=== PATIENT | male | born 1990 | race African-American/Black ===

== ENCOUNTER 2016-07-30 13:13 | Emergency (ER) | payer SELFPAY ==
[~2016-07-30] VITALS: Ht 180.3 cm; Wt 90.0 kg
[2016-07-30 13:15] VITALS: BP 131/72; PULSE 66; RESP 14; TEMP 98; O2SAT 98
--- NOTE | 2016-07-30 16:05 | PD ---
HPI Chief Complaint: Cold / Flu Symptoms Time Seen by Provider: 16:04 Travel History International Travel<30 days: No Contact w/Intl Traveler<30days: No Traveled to known affect area: No History of Present Illness HPI 26-year-old male presents to the emergency Department with complaint of cough, nasal congestion 2 weeks. Denies fever, chills, nausea, vomiting. Reports throat irritation with coughing. Denies chest pain, shortness of breath. Denies wheezing. Denies history of asthma or tobacco use. Girlfriend is sick with similar symptoms and was treated with antibiotics. Has not tried any over- the-counter medications or treatments to alleviate symptoms. Symptoms are worse at night when he lays down flat. Cough is worse at night. No sputum production. Dry cough. No known allergies. Denies Past medical history. No other modifying factors or associated signs and symptoms. PFSH Past Medical History Medical History: Denies Significant Hx Social History Tobacco Use: No Allergies-Medications (Allergen,Severity, Reaction): Coded Allergies: No Known Allergies (Unverified , 07/30/16) Reported Meds & Prescriptions Reported Meds & Active Scripts Active Azithromycin 500 Mg Tab 500 Mg PO DAILY Deltasone (Prednisone) 20 Mg Tab 40 Mg PO DAILY 4 Days start 07/31/2016 Proair Hfa 8.5 GM Inh (Albuterol Sulfate) 90 Mcg/Act Aer 2 Puff INH Q4-6H PRN 108 mcg/actuation Nasonex Nasal [place] (Mometasone Furoate) 50 Mcg/Act Naspr 2 [place] EACH NARE DAILY PRN Review of Systems Except as stated in HPI: all other systems reviewed are Neg Physical Exam Narrative GENERAL: Well-nourished, well-developed male patient, in no acute distress; afebrile, nontoxic-appearing SKIN: Warm and dry. No rash. HEAD: Atraumatic. Normocephalic. EYES: Pupils equal and round at 3 mm with brisk reaction. No scleral icterus. No injection or drainage. PERRLA. ENT: Mucosa pink and moist. No erythema or exudates. No uvular edema. No uvular , palatal, or tonsillar deviation. Airway patent. EARS: Bilateral pinnae and external canals appear within normal limits. Bilateral tympanic membranes without erythema, dullness or perforation. NECK: Trachea midline. No lymphadenopathy. CARDIOVASCULAR: Regular rate and rhythm. No murmur appreciated. RESPIRATORY: No accessory muscle use. Clear and decreased throughout to auscultation; no wheezing on auscultation. Breath sounds equal bilaterally. No audible wheezing. GASTROINTESTINAL: Abdomen soft, non-tender, nondistended. Hepatic and splenic margins not palpable. Bowel sounds are active 4 quadrants. MUSCULOSKELETAL: No obvious deformities. No clubbing. No cyanosis. No edema. NEUROLOGICAL: Awake and alert. Oriented 3. No obvious cranial nerve deficits. Motor grossly within normal limits. Normal speech. Moves all extremities. 5/5 strength to all extremities. PSYCHIATRIC: Appropriate mood and affect; insight and judgment normal. Data Data Last Documented VS Vital Signs Date Time Temp Pulse Resp B/P Pulse Ox O2 Delivery O2 Flow Rate FiO2 07/30/16 13:15 98.0 66 14 131/72 98 Orders Prednisone (Deltasone) (07/30/16 16:45) Albuterol-Ipratropium Neb (Duoneb Neb) (07/30/16 16:45) MDM Medical Decision Making Medical Screen Exam Complete: Yes Emergency Medical Condition: Yes Medical Record Reviewed: Yes Differential Diagnosis Viral illness, bronchitis, upper respiratory infection, sinusitis Narrative Course 26-year-old male physical examination consistent with acute bronchitis. Afebrile. Denies fever, chills, nausea, vomiting. In no acute distress and lung sounds are clear and decreased throughout. Oxygen saturation is 90% on room air. DuoNeb 1 and Deltasone administered in the ER. Deltasone, pro-air inhaler, Nasonex, azithromycin prescribed for home. Prescribed antibiotics for length of illness. Patient is medically cleared and stable for discharge. Discussed reasons to return to the emergency department. Instructed patient to follow up with primary care provider. Patient agrees with treatment plan. The patients vital signs are stable and the patient is stable for outpatient follow- up and treatment. Patient discharged home, stable and in no acute distress. Diagnosis Primary Impression: Bronchitis Referrals: Primary Care Physician Patient Instructions: Acute Bronchitis (ED), General Instructions Additional Instructions: Antibiotic as prescribed and complete full course Use albuterol inhaler 2-4 puffs every 4 hours at home as needed for shortness of breath and wheezing Take oral steroids as prescribed and complete full course avoid triggers such as second hand smoke, dust, known allergens With head of bed elevated Sleep with ceiling fan turned off Increase fluid intake to prevent dehydration Tylenol or ibuprofen as directed and as needed for pain/fever Follow-up with primary care provider Return to emergency department immediately with worsening of symptoms Med/Other Pt SpecificInfo: Prescription(s) given Scripts Azithromycin 500 Mg [id number] Mg PO DAILY #5 TAB Ref 0 Prov:Karla Sood 07/30/16 Prednisone (Deltasone)20 Mg Tab40 Mg PO DAILY 4 Days Ref 0 start 07/31/2016 Prov:Karla Sood 07/30/16 Albuterol 8.5 GM Inh (Proair Hfa 8.5 GM Inh)90 Mcg/Act Aer2 Puff INH Q4-6H PRN ( SOB/WHEEZING) #1 INHALER Ref 0 108 mcg/actuation Prov:Karla Sood 07/30/16 Mometasone Nasal [place] (Nasonex Nasal [place])50 Mcg/Act Naspr2 [place] EACH NARE DAILY PRN (NASAL CONGESTION) #1 BOTTLE Ref 0 Prov:Karla Sood 07/30/16 Disposition: 01 DISCHARGE HOME Condition: Stable Karla Sood Jul 30, 2016 16:05 Karla Sood Jul 30, 2016 16:05
[2016-07-30] MEDS ORDERED: ALBUAER3 INH (16:34)
[2016-07-30] MEDS ORDERED: MOME17I EACH NARE (16:34)
[2016-07-30] MEDS ORDERED: PRED-503 PO (16:34)
[2016-07-30] MEDS ORDERED: AZIT500T2 PO (16:34)
[2016-07-30] MEDS ORDERED: RESP: ALBUTEROL 2.5 MG/IPRATROPIUM 0.5 MG NEB (SCH) INH ONE (16:45)
[2016-07-30] MEDS ORDERED: predniSONE 20 MG TAB PO ONE (16:45)
== END 2016-07-30 17:07 | disposition home or self-care (01) ==
LOC: NEPB 13:13
DX: J40 Bronchitis, not specified as acute or chronic (principal)
CPT/HCPCS: 94664; 99283; J7512

== ENCOUNTER 2016-08-31 12:42 | Inpatient (IN) | payer OTHER ==
[~2016-08-31] VITALS: Ht 180.3 cm; Wt 87.0 kg
[2016-08-31] VITALS (7 sets, daily range): BP systolic 127–143; BP diastolic 82–92; PULSE 63–122; RESP 18; O2SAT 95–99
[~2016-08-31 12:42] MED LIST: ALBUAER3 INH; AZIT500T2 PO; LACTATED RINGER'S 1000 ML INJ 3,000 ML IV ONE; MOME17I EACH NARE; NEOSTIGMINE 3 MG/3 ML SYR IV ONE; ONDANSETRON HCL 4 MG/2 ML VIAL IV PUSH ONE; PHENYLEPH/NS 1000 MCG/10 ML SYR IV ONE; PRED-503 PO; PROPOFOL 200 MG/20 ML AMP IV ONE
[2016-08-31] MEDS ORDERED: ceFAZolin 2 GM PREMIX 50 ML ONE (12:47)
[2016-08-31] MEDS ORDERED: DIPHTH/TETANUS/ACEL PERTUSSIS (BOOSTER) 0.5 ML VIAL/PFS IM ONE ×2 (12:50→13:44)
[2016-08-31] MEDS ORDERED: HYDROmorphone HCL PF 1 MG/ML VIAL ONE (12:59)
[2016-08-31] MEDS ORDERED: ONDANSETRON HCL 4 MG/2 ML VIAL ONE (12:59)
[2016-08-31] MEDS ORDERED: GENTAMICIN 80 MG PREMIX 100 ML ONE (13:05)
[2016-08-31 13:21] LABS: I-STAT POTASSIUM 3.5 MMOL/L (3.5-4.9)
[2016-08-31] MEDS ORDERED: IOHEXOL 350 MG/ML 10 ML VIAL (for RAD DIAG) IV ONE (13:21)
[2016-08-31 13:23] LABS: AUTOMATED NEUTROPHIL # 5.4 TH/MM3 (1.8-7.7); BASOPHIL % 0.4 % (0.0-2.0); EOSINOPHIL # 0.1 TH/MM3 (0-0.4); EOSINOPHIL % 1.5 % (0.0-4.0); HEMATOCRIT 45.5 % (39.0-51.0); HEMO FLAGS DIFF FINAL; LYMPH % 34.4 % (9.0-44.0); LYMPHOCYTE # 3.3 TH/MM3 (1.0-4.8); MEAN CORPUSCULAR HEMOGLOBIN 30.9 PG (27.0-34.0); MEAN CORPUSCULAR HGB CONC 34.7 % (32.0-36.0); MONO % 7.3 % (0.0-8.0); NEUT % 56.4 % (16.0-70.0); PLATELET COUNT 311 TH/MM3 (150-450); RED BLOOD COUNT 5.12 MIL/MM3 (4.50-5.90); RED CELL DISTRIBUTION WIDTH 14.2 % (11.6-17.2); WHITE BLOOD COUNT 9.6 TH/MM3 (4.0-11.0)
[2016-08-31 13:35] LABS: APTT (PATIENT) 21.8 SEC (24.3-30.1); PROTHROMBIN TIME - PATIENT 11.3 SEC (9.8-11.6)
[2016-08-31] MEDS ORDERED: ceFAZolin 2 GM PREMIX 50 ML IV STA (13:40)
[2016-08-31] MEDS ORDERED: LACTATED RINGER'S 1000 ML INJ 1,000 ML IV SCH (13:53)
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
[2016-08-31] MEDS ORDERED: CHLORHEXIDINE GLUCONATE 2 % 1 PACK (2 CLOTHS) TOP PRN (14:00)
[2016-08-31] MEDS ORDERED: MISCELLANEOUS NURSING INFORMATION XX SCH (14:00)
[2016-08-31] MEDS ORDERED: SODIUM CHLORIDE 0.9% FLUSH 5 ML FLUSH IVF PRN (14:00)
[2016-08-31] MEDS ORDERED: HYDROmorphone HCL PF 1 MG/ML VIAL IV ONE (14:00)
[2016-08-31] MEDS ORDERED: ONDANSETRON HCL 4 MG/2 ML VIAL IV PUSH ONE (14:00)
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
[2016-08-31] MEDS ORDERED: MAGNESIUM HYDROXIDE SUSP 30 ML CUP PO PRN ×2 (15:00→22:45)
[2016-08-31] MEDS: HYDROmorphone HCL PF 1 MG/ML VIAL IVP PRN ×2 (15:44→19:13)
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
[2016-08-31] MEDS ORDERED: GENTAMICIN SULFATE 80 MG/2 ML VIAL ONE ×2 (17:16→21:14)
[2016-08-31] MEDS ORDERED: GENTAMICIN INJ 80 MG in SODIUM CHLORIDE 0.9% INJ 100 ML IV SCH (17:45)
[2016-08-31] MEDS ORDERED: ceFAZolin 2 GM PREMIX 50 ML IV SCH (17:45)
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
[2016-08-31] MEDS ORDERED: ONDANSETRON HCL 4 MG/2 ML VIAL IV PRN (20:00)
[2016-08-31] MEDS ORDERED: DOCUSATE SODIUM 100 MG CAP PO SCH (21:00)
[2016-08-31] MEDS ORDERED: GENTAMICIN 80 MG PREMIX 100 ML IV SCH (21:00)
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
[2016-08-31] MEDS ORDERED: ACETAMINOPHEN 325 MG TAB PO PRN (22:45)
[2016-08-31] MEDS ORDERED: diphenhydrAMINE HCL 25 MG CAP PO PRN (22:45)
[2016-08-31] MEDS ORDERED: ZOLPIDEM TARTRATE 5 MG TAB PO PRN (22:45)
[2016-08-31] MEDS ORDERED: oxyCODONE/ACETAMINOPHEN 5 MG/325 MG TAB PO PRN (22:45)
[2016-08-31] MEDS ORDERED: Post-op Orders (for Pharmacy) MISC XX ONE (22:45)
[2016-08-31] MEDS ORDERED: ONDANSETRON HCL 4 MG/2 ML VIAL IVP PRN (22:45)
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
[2016-08-31] MEDS ORDERED: MORPHINE SULFATE 4 MG/ML INJ IV PUSH PRN (23:00)
[2016-08-31] MEDS ORDERED: DO NOT ADM ANY ANTICOAGULANT DRUGS XX PRN (23:05)
[2016-08-31] MEDS ORDERED: fentaNYL CITRATE 250 MCG/5 ML AMP ONE (23:10)
[2016-08-31] MEDS ORDERED: *morphine SULFATE 8 MG/ML PERIprocedure ONLY ONE (23:11)
[2016-08-31] MEDS ORDERED: MEPERIDINE HCL 25 MG/ML VIAL ONE (23:11)
[2016-08-31] MEDS ORDERED: MEPERIDINE HCL 25 MG/ML VIAL IV ONE (23:12)
[2016-08-31] MEDS ORDERED: MORPHINE SULFATE 8 MG/ML INJ IV PUSH ONE (23:20)
[2016-08-31] MEDS ORDERED: LABETALOL HCL 100 MG/20 ML VIAL ONE (23:22)
[2016-08-31] MEDS ORDERED: PROMETHAZINE INJ 25 MG/ML VIAL ONE (23:23)
[2016-08-31] MEDS ORDERED: LABETALOL HCL 100 MG/20 ML VIAL IV PUSH ONE (23:25)
[2016-09-01] VITALS (9 sets, daily range): BP systolic 117–181; BP diastolic 71–92; PULSE 109–125; RESP 17–19; TEMP 96.9–99.4; O2SAT 94–100
[2016-09-01] MEDS ORDERED: *morphine SULFATE 8 MG/ML PERIprocedure ONLY ONE ×2 (00:03→01:25)
[2016-09-01] MEDS ORDERED: MORPHINE SULFATE 8 MG/ML INJ IV PUSH ONE ×2 (00:10→01:23)
[2016-09-01] MEDS ORDERED: ceFAZolin 2 GM PREMIX 50 ML IV SCH (02:00)
[2016-09-01] MEDS: CHLORHEXIDINE GLUCONATE 2 % 1 PACK (2 CLOTHS) TOP SCH (02:20)
[2016-09-01] MEDS: DEXT 5%-NACL 0.45% 1000 ML INJ 1,000 ML IV SCH ×3 (02:21→19:00)
[2016-09-01] MEDS: HYDROmorphone HCL PF 1 MG/ML VIAL IVP PRN ×7 (03:21→23:36)
[2016-09-01 04:52] LABS: AUTOMATED NEUTROPHIL # 10.1 TH/MM3 (1.8-7.7); BASOPHIL % 0.2 % (0.0-2.0); HEMATOCRIT 31.7 % (39.0-51.0); HEMO FLAGS DIFF FINAL; LYMPHOCYTE # 1.6 TH/MM3 (1.0-4.8); MEAN CELL VOLUME 89.8 FL (80.0-100.0); MEAN CORPUSCULAR HEMOGLOBIN 30.7 PG (27.0-34.0); MEAN CORPUSCULAR HGB CONC 34.2 % (32.0-36.0); MONO % 11.2 % (0.0-8.0); NEUT % 76.6 % (16.0-70.0); PLATELET COUNT 264 TH/MM3 (150-450); RED BLOOD COUNT 3.53 MIL/MM3 (4.50-5.90); RED CELL DISTRIBUTION WIDTH 13.9 % (11.6-17.2); WHITE BLOOD COUNT 13.2 TH/MM3 (4.0-11.0)
[2016-09-01] MEDS ORDERED: GENTAMICIN 80 MG PREMIX 100 ML IV SCH (05:00)
[2016-09-01 05:04] LABS: ALT (GPT) 33 U/L (12-78); ANION GAP 12 MEQ/L (5-15); AST (GOT) 72 U/L (15-37); BICARBONATE 24.1 MEQ/L (21.0-32.0); BLOOD UREA NITROGEN 8 MG/DL (7-18); CHLORIDE 102 MEQ/L (98-107); GLOMERULAR FILTRATION RATE 95 ML/MIN (>89); POTASSIUM 4.2 MEQ/L (3.5-5.1); SODIUM (NA) 138 MEQ/L (136-145)
[2016-09-01 05:06] LABS: ALKALINE PHOSPHATASE 61 U/L (45-117); TOTAL BILIRUBIN ADULT 0.5 MG/DL (0.2-1.0)
[2016-09-01] MEDS: oxyCODONE/ACETAMINOPHEN 5 MG/325 MG TAB PO PRN ×4 (06:02→20:35)
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
[2016-09-01] MEDS: MULTIVITAMINS/MINERALS THERAPEUTIC TAB PO SCH (08:34)
[2016-09-01] MEDS: SODIUM CHLORIDE 0.9% FLUSH 5 ML FLUSH IVF SCH ×2 (08:34→19:29)
[2016-09-01] MEDS: DOCUSATE SODIUM 50 MG/SENNA 8.6 MG TAB PO SCH ×2 (08:34→19:30)
[2016-09-01] MEDS: SODIUM CHLORIDE 0.9% FLUSH 5 ML FLUSH IVF PRN ×2 (09:52→10:25)
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
[2016-09-01] MEDS: MAGNESIUM HYDROXIDE SUSP 30 ML CUP PO SCH (19:29)
[2016-09-01] MEDS: FAMOTIDINE 20 MG TAB PO SCH (19:30)
[2016-09-01] MEDS ORDERED: ENOXAPARIN SODIUM 40 MG/0.4 ML SYRINGE SQ SCH (22:00)
[2016-09-01] MEDS: diphenhydrAMINE HCL 50 MG/ML VIAL IV PRN (23:36)
[2016-09-02] VITALS: BP 140/77; PULSE 125; RESP 18; TEMP 98.6; O2SAT 96
[2016-09-02] MEDS: oxyCODONE/ACETAMINOPHEN 5 MG/325 MG TAB PO PRN ×2 (00:41→04:32)
[2016-09-02] MEDS: HYDROmorphone HCL PF 1 MG/ML VIAL IVP PRN (03:29)
[2016-09-02] MEDS: CHLORHEXIDINE GLUCONATE 2 % 1 PACK (2 CLOTHS) TOP SCH (04:00)
[2016-09-02] MEDS: DEXT 5%-NACL 0.45% 1000 ML INJ 1,000 ML IV SCH (05:00)
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
[2016-09-02 07:16] LABS: HEMATOCRIT 26.4 % (39.0-51.0); MEAN CELL VOLUME 88.8 FL (80.0-100.0); MEAN CORPUSCULAR HEMOGLOBIN 30.5 PG (27.0-34.0); MEAN CORPUSCULAR HGB CONC 34.4 % (32.0-36.0); PLATELET COUNT 203 TH/MM3 (150-450); RED BLOOD COUNT 2.98 MIL/MM3 (4.50-5.90); RED CELL DISTRIBUTION WIDTH 13.7 % (11.6-17.2); REVIEW FLAG FINAL; WHITE BLOOD COUNT 13.7 TH/MM3 (4.0-11.0)
[2016-09-02] MEDS: MULTIVITAMINS/MINERALS THERAPEUTIC TAB PO SCH (07:25)
[2016-09-02] MEDS: DOCUSATE SODIUM 50 MG/SENNA 8.6 MG TAB PO SCH ×2 (07:25→20:03)
[2016-09-02] MEDS: SODIUM CHLORIDE 0.9% FLUSH 5 ML FLUSH IVF SCH ×2 (07:25→20:03)
[2016-09-02 07:31] LABS: BICARBONATE 28.5 MEQ/L (21.0-32.0); MAGNESIUM 2.1 MG/DL (1.5-2.5); POTASSIUM 3.9 MEQ/L (3.5-5.1)
[2016-09-02] MEDS ORDERED: MIDAZOLAM HCL 2 MG/2 ML VIAL ONE (07:39)
[2016-09-02] MEDS ORDERED: ACETAMINOPHEN 1000 MG/100 ML VIAL IV ONE (07:39)
[2016-09-02] MEDS ORDERED: HYDROmorphone HCL PF 2 MG/ML VIAL ONE (07:39)
[2016-09-02] MEDS ORDERED: fentaNYL CITRATE 250 MCG/5 ML AMP ONE (07:39)
[2016-09-02] MEDS ORDERED: FAMOTIDINE 20 MG/2 ML VIAL ONE (07:40)
[2016-09-02] MEDS ORDERED: VANCOMYCIN HCL 1000 MG VIAL ONE ×2 (07:55→07:56)
[2016-09-02] MEDS ORDERED: GENTAMICIN SULFATE 80 MG/2 ML VIAL ONE (07:56)
[2016-09-02] MEDS ORDERED: SODIUM CHLOR 0.9% 250 ML INJ 250 ML ONE (07:56)
[2016-09-02 08:00] VITALS: BP 139/79; PULSE 124; RESP 16; TEMP 98.5; O2SAT 97
[2016-09-02] MEDS ORDERED: ceFAZolin 2 GM PREMIX 50 ML ONE (08:37)
[2016-09-02] MEDS ORDERED: TOBRAMYCIN SULFATE 1200 MG VIAL OTHER ONE (08:54)
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
[2016-09-02] MEDS ORDERED: Post-op Orders (for Pharmacy) MISC XX ONE (10:15)
[2016-09-02] MEDS ORDERED: SODIUM CHLORIDE 0.9% FLUSH 5 ML FLUSH IVF PRN (10:15)
[2016-09-02] MEDS ORDERED: ACETAMINOPHEN/HYDROcodone 325 MG/10 MG TAB PO PRN ×2 (10:15)
[2016-09-02] MEDS ORDERED: NALOXONE HCL 0.4 MG/ML AMP IV PRN (10:15)
[2016-09-02] MEDS ORDERED: MISCELLANEOUS NURSING INFORMATION XX PRN (10:15)
[2016-09-02] MEDS ORDERED: *morphine SULFATE 8 MG/ML PERIprocedure ONLY ONE (10:30)
[2016-09-02] MEDS ORDERED: LACTATED RINGER'S 1000 ML INJ 2,000 ML IV ONE (10:32)
[2016-09-02] MEDS ORDERED: PROPOFOL 200 MG/20 ML AMP IV ONE (10:32)
[2016-09-02] MEDS ORDERED: ONDANSETRON HCL 4 MG/2 ML VIAL IV PUSH ONE (10:32)
[2016-09-02] MEDS ORDERED: DO NOT ADM ANY ANTICOAGULANT DRUGS XX PRN (11:00)
[2016-09-02] MEDS: LACTATED RINGER'S 1000 ML INJ 1,000 ML IV SCH (11:05)
[2016-09-02] MEDS: MORPHINE SULFATE 30 MG/30 ML PCA IV SCH ×2 (11:18→22:09)
[2016-09-02] MEDS ORDERED: WHEEMIS3 (13:08)
[2016-09-02] MEDS ORDERED: WALKER WHEELS/F1 MIS (13:08)
[2016-09-02] MEDS: MORPHINE SULFATE 4 MG/ML INJ IV PUSH PRN ×3 (13:29→22:58)
[2016-09-02] MEDS: SODIUM CHLORIDE 0.9% FLUSH 5 ML FLUSH IVF PRN ×2 (13:29→17:09)
[2016-09-02] MEDS: PCA - TOTAL MG MORPHINE DELIVERED PER SHIFT SCH ×2 (14:00→22:00)
[2016-09-02] MEDS: ceFAZolin 2 GM PREMIX 50 ML IV SCH (15:49)
[2016-09-02 16:00] VITALS: BP 137/81; PULSE 123; RESP 12; TEMP 97.7; O2SAT 100
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
[2016-09-02 20:00] VITALS: BP 148/74; PULSE 128; RESP 18; TEMP 99.2; O2SAT 96
[2016-09-02] MEDS: FAMOTIDINE 20 MG TAB PO SCH (20:03)
[2016-09-02] MEDS: MAGNESIUM HYDROXIDE SUSP 30 ML CUP PO SCH (20:03)
[2016-09-02] MEDS: VANCOMYCIN INJ 1,000 MG in SODIUM CHLOR 0.9% 250 ML INJ 250 ML IV SCH (20:03)
[2016-09-02] MEDS ORDERED: SODIUM CHLORIDE 0.9% FLUSH 5 ML FLUSH IVF SCH (21:00)
[2016-09-02] MEDS: diphenhydrAMINE HCL 50 MG/ML VIAL IV PRN (21:16)
[2016-09-02 23:56] VITALS: BP 109/61; PULSE 120; RESP 19; TEMP 99; O2SAT 96
[2016-09-03] VITALS (12 sets, daily range): BP systolic 114–140; BP diastolic 56–75; PULSE 105–124; RESP 18–20; TEMP 97–99.8; O2SAT 95–98
[2016-09-03] MEDS: ceFAZolin 2 GM PREMIX 50 ML IV SCH ×3 (00:04→15:57)
[2016-09-03] MEDS: LACTATED RINGER'S 1000 ML INJ 1,000 ML IV SCH ×2 (00:05→09:23)
[2016-09-03] MEDS: MORPHINE SULFATE 4 MG/ML INJ IV PUSH PRN ×4 (01:46→20:21)
[2016-09-03] MEDS: diphenhydrAMINE HCL 50 MG/ML VIAL IV PRN ×2 (03:22→18:58)
[2016-09-03] MEDS: CHLORHEXIDINE GLUCONATE 2 % 1 PACK (2 CLOTHS) TOP SCH ×2 (04:00→23:59)
[2016-09-03 05:10] LABS: REVIEW FLAG FINAL
[2016-09-03 05:12] LABS: HEMATOCRIT 20.6 % (39.0-51.0)
[2016-09-03] MEDS: MORPHINE SULFATE 30 MG/30 ML PCA IV SCH (05:16)
[2016-09-03] MEDS: PCA - TOTAL MG MORPHINE DELIVERED PER SHIFT SCH (06:00)
[2016-09-03] MEDS ORDERED: HYDR-3366 PO (07:00)
[2016-09-03] MEDS ORDERED: XARE10TA PO (07:00)
[2016-09-03] MEDS ORDERED: WALKER WHEELS/F1 MIS (07:00)
--- NOTE | 2016-09-03 07:00 | HHI.FF ---
Face to Face Verification Diagnosis: (1) Open left femoral fracture Physical Therapy Gait training Left LE Weight Bearing: Non WB Nursing Dressing Changes: Daily dressing change, Tadeo wrap, 4x4s, Xeroform I have seen patient Toby Munoz on 09/03/16. My clinical findings support the need for the requested home health care services because: Ltd mobility - disease progression I certify that my clinical findings support that this patient is homebound because: Post-op weakness Marcello Puente Sep 03, 2016 07:00
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
[2016-09-03] MEDS: SODIUM CHLORIDE 0.9% FLUSH 5 ML FLUSH IVF SCH ×2 (08:07→20:20)
[2016-09-03] MEDS: DOCUSATE SODIUM 50 MG/SENNA 8.6 MG TAB PO SCH ×2 (08:08→20:24)
[2016-09-03] MEDS: MULTIVITAMINS/MINERALS THERAPEUTIC TAB PO SCH (08:08)
[2016-09-03] MEDS: METOPROLOL TARTRATE 25 MG TAB PO SCH ×2 (09:22→20:24)
[2016-09-03] MEDS: PILL SPLITTER OTHER PRN (09:22)
[2016-09-03] MEDS: VANCOMYCIN INJ 1,000 MG in SODIUM CHLOR 0.9% 250 ML INJ 250 ML IV SCH ×2 (09:23→20:25)
[2016-09-03] MEDS: oxyCODONE/ACETAMINOPHEN 7.5 MG/325 MG TAB PO PRN ×3 (11:25→22:05)
[2016-09-03] MEDS ORDERED: oxyCODONE/ACETAMINOPHEN 7.5 MG/325 MG TAB PO PRN (12:00)
[2016-09-03] MEDS ORDERED: COMMODE 3-IN-11 MIS (13:44)
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
[2016-09-03] MEDS ORDERED: LACTULOSE SYRUP 20 GM/30 ML CUP PO ONE (15:00)
[2016-09-03] MEDS: MAGNESIUM HYDROXIDE SUSP 30 ML CUP PO SCH (20:24)
[2016-09-03] MEDS: FAMOTIDINE 20 MG TAB PO SCH (20:24)
[2016-09-04] VITALS: BP 130/62; PULSE 92; RESP 18; TEMP 96.8; O2SAT 96
[2016-09-04] MEDS: ceFAZolin 2 GM PREMIX 50 ML IV SCH ×2 (01:07→08:08)
[2016-09-04] MEDS: MORPHINE SULFATE 4 MG/ML INJ IV PUSH PRN ×3 (01:14→09:20)
[2016-09-04] MEDS: diphenhydrAMINE HCL 50 MG/ML VIAL IV PRN (05:33)
[2016-09-04 05:42] LABS: HEMATOCRIT 26.9 % (39.0-51.0); MEAN CELL VOLUME 88.4 FL (80.0-100.0); MEAN CORPUSCULAR HEMOGLOBIN 30.1 PG (27.0-34.0); MEAN CORPUSCULAR HGB CONC 34.1 % (32.0-36.0); PLATELET COUNT 266 TH/MM3 (150-450); RED BLOOD COUNT 3.05 MIL/MM3 (4.50-5.90); RED CELL DISTRIBUTION WIDTH 13.9 % (11.6-17.2); REVIEW FLAG FINAL; WHITE BLOOD COUNT 12.8 TH/MM3 (4.0-11.0)
[2016-09-04 05:47] LABS: BICARBONATE 27.5 MEQ/L (21.0-32.0); POTASSIUM 3.3 MEQ/L (3.5-5.1)
[2016-09-04] MEDS ORDERED: LACTULOSE SYRUP 20 GM/30 ML CUP PO ONE (07:30)
[2016-09-04] MEDS ORDERED: POTASSIUM CHLORIDE 10 MEQ CONTROLLED RELEASE TAB PO ONE (07:30)
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
[2016-09-04 08:00] VITALS: BP 124/65; PULSE 97; RESP 12; TEMP 98.6; O2SAT 97
[2016-09-04] MEDS: METOPROLOL TARTRATE 25 MG TAB PO SCH ×2 (08:07→20:10)
[2016-09-04] MEDS: MULTIVITAMINS/MINERALS THERAPEUTIC TAB PO SCH (08:07)
[2016-09-04] MEDS: DOCUSATE SODIUM 50 MG/SENNA 8.6 MG TAB PO SCH ×2 (08:07→20:11)
[2016-09-04] MEDS: SODIUM CHLORIDE 0.9% FLUSH 5 ML FLUSH IVF SCH ×2 (08:08→20:12)
[2016-09-04] MEDS: PILL SPLITTER OTHER PRN ×2 (08:08→20:13)
[2016-09-04] MEDS: oxyCODONE/ACETAMINOPHEN 7.5 MG/325 MG TAB PO PRN ×4 (08:17→20:11)
[2016-09-04] MEDS: VANCOMYCIN INJ 1,000 MG in SODIUM CHLOR 0.9% 250 ML INJ 250 ML IV SCH (09:15)
[2016-09-04] MEDS: SODIUM CHLORIDE 0.9% FLUSH 5 ML FLUSH IVF PRN ×2 (09:20→18:02)
[2016-09-04] MEDS ORDERED: MISCELLANEOUS PHARMACY INFORMATION XX ONE (11:00)
[2016-09-04] MEDS ORDERED: diphenhydrAMINE HCL 50 MG/ML VIAL IV PUSH PRN (12:00)
[2016-09-04] MEDS: HYDROmorphone HCL PF 1 MG/ML VIAL IV PUSH PRN ×2 (14:10→18:02)
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
[2016-09-04 16:00] VITALS: BP 138/71; PULSE 116; RESP 16; TEMP 99.9; O2SAT 99
[2016-09-04 20:00] VITALS: BP 137/85; PULSE 122; RESP 20; TEMP 98.6; O2SAT 100
[2016-09-04] MEDS: FAMOTIDINE 20 MG TAB PO SCH (20:10)
[2016-09-04] MEDS: MAGNESIUM HYDROXIDE SUSP 30 ML CUP PO SCH (20:11)
[2016-09-04] MEDS: CHLORHEXIDINE GLUCONATE 2 % 1 PACK (2 CLOTHS) TOP SCH (20:12)
[2016-09-05] VITALS: BP 132/82; PULSE 96; RESP 20; TEMP 97.4; O2SAT 97
[2016-09-05] MEDS: oxyCODONE/ACETAMINOPHEN 7.5 MG/325 MG TAB PO PRN ×6 (00:27→21:38)
[2016-09-05 05:05] LABS: HEMATOCRIT 29.3 % (39.0-51.0); REVIEW FLAG FINAL
[2016-09-05 05:19] LABS: BICARBONATE 27.6 MEQ/L (21.0-32.0); POTASSIUM 3.3 MEQ/L (3.5-5.1)
[2016-09-05] MEDS: HYDROmorphone HCL PF 1 MG/ML VIAL IV PUSH PRN ×4 (05:30→23:36)
[2016-09-05] MEDS: MULTIVITAMINS/MINERALS THERAPEUTIC TAB PO SCH (07:44)
[2016-09-05] MEDS: SODIUM CHLORIDE 0.9% FLUSH 5 ML FLUSH IVF SCH ×2 (07:45→20:25)
[2016-09-05] MEDS: DOCUSATE SODIUM 50 MG/SENNA 8.6 MG TAB PO SCH ×2 (07:45→20:23)
[2016-09-05] MEDS: METOPROLOL TARTRATE 25 MG TAB PO SCH ×2 (07:45→20:23)
[2016-09-05 08:00] VITALS: BP 120/73; PULSE 88; RESP 14; TEMP 96.5; O2SAT 97
[2016-09-05] MEDS ORDERED: POTASSIUM CHLORIDE 20 MEQ CONTROLLED RELEASE TAB PO ONE (09:00)
[2016-09-05] MEDS: GABAPENTIN 300 MG CAP PO SCH ×3 (09:05→17:28)
[2016-09-05 12:00] VITALS: BP 133/70; PULSE 96; RESP 18; TEMP 97.8; O2SAT 99
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
[2016-09-05] MEDS: ENOXAPARIN SODIUM 40 MG/0.4 ML SYRINGE SQ SCH (14:38)
[2016-09-05 16:00] VITALS: BP 143/73; PULSE 106; RESP 18; TEMP 97; O2SAT 100
[2016-09-05 20:00] VITALS: BP 115/75; PULSE 112; RESP 20; TEMP 99.8; O2SAT 97
[2016-09-05] MEDS: MAGNESIUM HYDROXIDE SUSP 30 ML CUP PO SCH (20:23)
[2016-09-05] MEDS: FAMOTIDINE 20 MG TAB PO SCH (20:23)
[2016-09-05] MEDS: PILL SPLITTER OTHER PRN (20:24)
[2016-09-06] VITALS: BP 134/76; PULSE 104; RESP 22; TEMP 99; O2SAT 96
[2016-09-06] MEDS: oxyCODONE/ACETAMINOPHEN 7.5 MG/325 MG TAB PO PRN ×4 (01:45→22:36)
[2016-09-06] MEDS: HYDROmorphone HCL PF 1 MG/ML VIAL IV PUSH PRN ×3 (03:57→12:14)
[2016-09-06] MEDS: CHLORHEXIDINE GLUCONATE 2 % 1 PACK (2 CLOTHS) TOP SCH (04:00)
[2016-09-06] MEDS: MULTIVITAMINS/MINERALS THERAPEUTIC TAB PO SCH (07:48)
[2016-09-06] MEDS: DOCUSATE SODIUM 50 MG/SENNA 8.6 MG TAB PO SCH ×2 (07:48→22:35)
[2016-09-06] MEDS: SODIUM CHLORIDE 0.9% FLUSH 5 ML FLUSH IVF SCH ×2 (07:48→22:36)
[2016-09-06] MEDS: GABAPENTIN 300 MG CAP PO SCH ×3 (07:48→16:06)
[2016-09-06] MEDS: METOPROLOL TARTRATE 25 MG TAB PO SCH ×2 (07:48→22:36)
[2016-09-06 08:00] VITALS: BP 113/79; PULSE 94; RESP 20; TEMP 98.1; O2SAT 100
[2016-09-06 12:00] VITALS: BP 123/81; PULSE 104; RESP 20; TEMP 98.4; O2SAT 98
[2016-09-06] MEDS: ENOXAPARIN SODIUM 40 MG/0.4 ML SYRINGE SQ SCH (12:14)
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
[2016-09-06 16:00] VITALS: BP 118/76; PULSE 96; RESP 19; TEMP 98.2; O2SAT 98
[2016-09-06] MEDS: KETOROLAC TROMETHAMINE 30 MG/ML (IVP) VIAL IV PUSH SCH ×2 (16:06→17:52)
[2016-09-06 20:00] VITALS: BP 129/75; PULSE 100; RESP 20; TEMP 99.1; O2SAT 98
[2016-09-06] MEDS: MAGNESIUM HYDROXIDE SUSP 30 ML CUP PO SCH (22:35)
[2016-09-06] MEDS: FAMOTIDINE 20 MG TAB PO SCH (22:36)
[2016-09-06] MEDS: PILL SPLITTER OTHER PRN (22:37)
[2016-09-07] VITALS: BP 126/86; PULSE 118; RESP 20; TEMP 98.6; O2SAT 100
[2016-09-07] MEDS: KETOROLAC TROMETHAMINE 30 MG/ML (IVP) VIAL IV PUSH SCH ×2 (00:19→06:33)
[2016-09-07] MEDS: oxyCODONE/ACETAMINOPHEN 7.5 MG/325 MG TAB PO PRN ×2 (02:45→08:02)
[2016-09-07] MEDS: CHLORHEXIDINE GLUCONATE 2 % 1 PACK (2 CLOTHS) TOP SCH (04:00)
[2016-09-07] MEDS: GABAPENTIN 300 MG CAP PO SCH ×2 (08:02→12:15)
[2016-09-07] MEDS: MULTIVITAMINS/MINERALS THERAPEUTIC TAB PO SCH (08:02)
[2016-09-07] MEDS: DOCUSATE SODIUM 50 MG/SENNA 8.6 MG TAB PO SCH (08:02)
[2016-09-07] MEDS: PILL SPLITTER OTHER PRN (08:03)
[2016-09-07] MEDS: METOPROLOL TARTRATE 25 MG TAB PO SCH (08:03)
[2016-09-07] MEDS: SODIUM CHLORIDE 0.9% FLUSH 5 ML FLUSH IVF SCH (08:04)
[2016-09-07 08:11] VITALS: BP 124/65; PULSE 88; RESP 18; TEMP 98.6; O2SAT 96
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
[2016-09-07] MEDS ORDERED: POTASSIUM CHLORIDE 25 MEQ EFFERVESCENT TAB PO SCH (09:00)
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
== END 2016-09-07 12:34 | disposition home health service (06) | DRG 481 ==
LOC: NEPI 12:42 → NEDA 13:16 → NEDH 17:30 → N07A 09-01 01:42
PROVIDERS: ADMIT Surgery; ATTEND Surgery
PROC: 0JDM0ZZ Extraction of Left Upper Leg Subcutaneous Tissue and Fascia, Open Approach (ICD-10-PCS; 2016-08-31)
PROC: 0JCM0ZZ Extirpation of Matter from Left Upper Leg Subcutaneous Tissue and Fascia, Open Approach (ICD-10-PCS; 2016-08-31)
PROC: 0QS9XZZ Reposition Left Femoral Shaft, External Approach (ICD-10-PCS; 2016-08-31)
PROC: 0QS Lower Bones, Reposition (ICD-10-PCS; principal; 2016-08-31 20:35)
PROC: 0QS906Z Reposition Left Femoral Shaft with Intramedullary Internal Fixation Device, Open Approach (ICD-10-PCS; 2016-09-02)
PROC: 0QP Lower Bones, Removal (ICD-10-PCS; 2016-09-02)
PROC: 3E0V329 Introduction of Other Anti-infective into Bones, Percutaneous Approach (ICD-10-PCS; 2016-09-02)
PROC: 30233N1 Transfusion of Nonautologous Red Blood Cells into Peripheral Vein, Percutaneous Approach (ICD-10-PCS; 2016-09-03)
DX: S72.352B Displaced comminuted fracture of shaft of left femur, initial encounter for open fracture type I or II (principal); R71.0 Precipitous drop in hematocrit; S61.206A Unspecified open wound of right little finger without damage to nail, initial encounter; L29.9 Pruritus, unspecified; T40.2X5A Adverse effect of other opioids, initial encounter; F12.90 Cannabis use, unspecified, uncomplicated; F17.210 Nicotine dependence, cigarettes, uncomplicated; W33.01XA Accidental discharge of shotgun, initial encounter; Y92.008 Other place in unspecified non-institutional (private) residence as the place of occurrence of the external cause
CPT/HCPCS: 36430; 71010; 72170; 73120; 73552; 74000; 75635; 76000; 76937; 80048; 80053; 82435; 82565; 82947; 83735; 84132; 84295; 84520; 85014; 85018; 85025; 85027; 85610; 85730; 86850; 86900; 86901; 86920; 90715; 94150; 96374; 96375; 99291; C1713; C1769; G0390; J0131; J0690; J1170; J1200; J1580; J1650; J1885; J2175; J2250; J2270; J2370; J2405; J2550; J2710; J3010; J3260; J3370; J7050; J7120; P9016; Q9967

== ENCOUNTER 2017-05-31 14:12 | Emergency (ER) | payer OTHER ==
[~2017-05-31] VITALS: Ht 182.9 cm; Wt 84.0 kg
[~2017-05-31 14:12] MED LIST changes: +COMMODE 3-IN-11 MIS; +HYDR-3366 PO; -LACTATED RINGER'S 1000 ML INJ 3,000 ML IV ONE; -NEOSTIGMINE 3 MG/3 ML SYR IV ONE; -ONDANSETRON HCL 4 MG/2 ML VIAL IV PUSH ONE; -PHENYLEPH/NS 1000 MCG/10 ML SYR IV ONE; -PROPOFOL 200 MG/20 ML AMP IV ONE; +WALKER WHEELS/F1 MIS; +WHEEMIS3; +XARE10TA PO
[2017-05-31 14:13] VITALS: BP 152/85; PULSE 81; RESP 20; TEMP 98.2; O2SAT 99
--- NOTE | 2017-05-31 15:36 | RADRPT ---
EXAM DATE/TIME: 05/31/2017 14:40 [facility] COMPARISON: No previous studies available for comparison. INDICATIONS : Right flank pain for two days. ORAL CONTRAST: No oral contrast ingested. RADIATION DOSE: 10.83 CTDIvol (mGy) MEDICAL HISTORY : None SURGICAL HISTORY : None. ENCOUNTER: Initial ACUITY: 2 days PAIN SCALE: 10/10 LOCATION: Right flank TECHNIQUE: Volumetric scanning of the abdomen and pelvis was performed. Using automated exposure control and ad justment of the mA and/or kV according to patient size, radiation dose was kept as low as reasonably achievable to obtain optimal diagnostic quality images. DICOM format image data is available electro nically for review and comparison. FINDINGS: LOWER LUNGS: The visualized lower lungs are clear. LIVER: Homogeneous density without lesion. There is no dilation of the biliary tree. No calcified gallston es. SPLEEN: Normal size without lesion. PANCREAS: Within normal limits. KIDNEYS: Normal in size and shape. There is no mass, stone, or hydronephrosis. ADRENAL GLANDS: Within normal limits. VASCULAR: There is no aortic aneurysm. BOWEL/MESENTERY: The stomach, small bowel, and colon demonstrate no acute abnormality. Appendix is visualized and appe ars unremarkable. There is no free intraperitoneal air or fluid. ABDOMINAL WALL: Small periumbilical fat containing hernia. RETROPERITONEUM: There is no lymphadenopathy. BLADDER: No wall thickening or mass. REPRODUCTIVE: Within normal limits. INGUINAL: Subcentimeter bilateral renal nodes are likely reactive. MUSCULOSKELETAL: Left femoral intramedullary nail. Within normal limits for patient age. CONCLUSION: 1. No acute CT findings to explain patient's right flank pain. Specifically, normal appendix and no e vidence for radiopaque renal calculi or obstructive uropathy. 2. Ancillary findings include small fat containing barium upper hernia and left femoral intramedullar y nail. Zaheer Ortiz MD on May 31, 2017 at 15:25 Board Certified Radiologist. This report was verified electronically.
[2017-05-31 15:37] LABS: AUTOMATED NEUTROPHIL # 9.4 TH/MM3 (1.8-7.7); BASOPHIL % 0.4 % (0.0-2.0); EOSINOPHIL # 0.1 TH/MM3 (0-0.4); EOSINOPHIL % 1.1 % (0.0-4.0); HEMATOCRIT 44.2 % (39.0-51.0); HEMO FLAGS DIFF FINAL; LYMPH % 12.5 % (9.0-44.0); LYMPHOCYTE # 1.5 TH/MM3 (1.0-4.8); MEAN CELL VOLUME 88.8 FL (80.0-100.0); MEAN CORPUSCULAR HEMOGLOBIN 29.6 PG (27.0-34.0); MEAN CORPUSCULAR HGB CONC 33.3 % (32.0-36.0); MONO % 7.5 % (0.0-8.0); NEUT % 78.5 % (16.0-70.0); PLATELET COUNT 270 TH/MM3 (150-450); RED BLOOD COUNT 4.97 MIL/MM3 (4.50-5.90); RED CELL DISTRIBUTION WIDTH 14.2 % (11.6-17.2); WHITE BLOOD COUNT 11.9 TH/MM3 (4.0-11.0)
[2017-05-31 15:45] LABS: BICARBONATE 26.5 MEQ/L (21.0-32.0); POTASSIUM 3.6 MEQ/L (3.5-5.1)
--- NOTE | 2017-05-31 16:29 | PD ---
HPI . Flank pain Chief Complaint: Flank/Kidney Pain Time Seen by Provider: 15:52 Travel History International Travel<30 days: No Contact w/Intl Traveler<30days: No Traveled to known affect area: No History of Present Illness HPI Patient presents with a chief complaint of flank pain. Onset was 3 days ago. He rates the pain 10/10. No modifying factors. He is also complaining with some cold type symptoms. No urinary symptoms. No GI symptoms. PFSH Past Medical History Anxiety: No Depression: No Cardiovascular Problems: No Genitourinary: No Musculoskeletal: Yes Neurologic: No Psychiatric: No Reproductive: No Respiratory: No Tetanus Vaccination: < 5 Years Influenza Vaccination: No Past Surgical History Pacemaker: No Other Surgery: Yes Social History Alcohol Use: Yes (occasionally) Tobacco Use: No Substance Use: Yes (MARIJUANA) Allergies-Medications (Allergen,Severity, Reaction): Coded Allergies: No Known Allergies (Unverified , 07/30/16) Reported Meds & Prescriptions Reported Meds & Active Scripts Active Commode 3-in-1 (Device) 1 Mis Mis 1 Ea .ROUTE DIRECTED Xarelto (Rivaroxaban) 10 Mg Tab 10 Mg PO DAILY [place] (Hydrocodone-Acetaminophen) 10-325 Mg Tab 1 Tab PO Q4H PRN Walker with Front Wheels (Device) 1 Mis Mis 1 Ea .ROUTE DIRECTED Wheelchair Elevated Leg (Device) 1 Mis Mis 1 Ea .ROUTE DIRECTED Walker with Front Wheels (Device) 1 Mis Mis 1 Ea .ROUTE DIRECTED Azithromycin 500 Mg Tab 500 Mg PO DAILY Deltasone (Prednisone) 20 Mg Tab 40 Mg PO DAILY 4 Days start 07/31/2016 Proair Hfa 8.5 GM Inh (Albuterol Sulfate) 90 Mcg/Act Aer 2 Puff INH Q4-6H PRN 108 mcg/actuation Nasonex Nasal [place] (Mometasone Furoate) 50 Mcg/Act Naspr 2 [place] EACH NARE DAILY PRN Review of Systems Except as stated in HPI: all other systems reviewed are Neg General / Constitutional: No: Fever, Chills HENT: Positive: Congestion Gastrointestinal: No: Nausea, Vomiting, Diarrhea, Abdominal Pain, Constipation , Loss of Appetite Genitourinary: Positive: Flank Pain, No: Urgency, Frequency, Dysuria, Hematuria Physical Exam Narrative GENERAL: Patient appears to be lying comfortably on the stretcher. SKIN: warm/dry. HEAD: Normocephalic. Atraumatic. EYES: Pupils equal and round. No scleral icterus. No injection or drainage. ENT: No nasal bleeding or discharge. Mucous membranes pink and moist. NECK: Trachea midline. Full range of motion without pain.. CARDIOVASCULAR: Regular rate and rhythm. Heart sounds normal. RESPIRATORY: No accessory muscle use. Clear to auscultation. Breath sounds equal bilaterally. GASTROINTESTINAL: Abdomen soft. Nontender. Bowel sounds present. Nondistended. MUSCULOSKELETAL: No obvious deformities. Patient appears to have tremendous pain with movement. Positive right CVA tenderness. NEUROLOGICAL: Awake and alert. No obvious cranial nerve deficits. Motor grossly within normal limits. Normal speech. PSYCHIATRIC: Appropriate mood and affect; insight and judgment normal. Data Data Last Documented VS Vital Signs Date Time Temp Pulse Resp B/P (MAP) Pulse Ox O2 Delivery O2 Flow Rate FiO2 05/31/17 14:13 98.2 81 20 152/85 (107) 99 Room Air Orders Orders Basic Metabolic Panel (Bmp) (05/31/17 14:24) Complete Blood Count With Diff (05/31/17 14:24) Urinalysis - C+S If Indicated (05/31/17 14:24) Ct Abd/Pel W/O Iv Contrast (05/31/17 14:24) Labs Laboratory Tests Test 05/31/17 15:16 05/31/17 15:45 White Blood Count 11.9 TH/MM3 Red Blood Count 4.97 MIL/MM3 Hemoglobin 14.7 GM/DL Hematocrit 44.2 % Mean Corpuscular Volume 88.8 FL Mean Corpuscular Hemoglobin 29.6 PG Mean Corpuscular Hemoglobin Concent 33.3 % Red Cell Distribution Width 14.2 % Platelet Count 270 TH/MM3 Mean Platelet Volume 7.9 FL Neutrophils (%) (Auto) 78.5 % Lymphocytes (%) (Auto) 12.5 % Monocytes (%) (Auto) 7.5 % Eosinophils (%) (Auto) 1.1 % Basophils (%) (Auto) 0.4 % Neutrophils # (Auto) 9.4 TH/MM3 Lymphocytes # (Auto) 1.5 TH/MM3 Monocytes # (Auto) 0.9 TH/MM3 Eosinophils # (Auto) 0.1 TH/MM3 Basophils # (Auto) 0.0 TH/MM3 CBC Comment DIFF FINAL Differential Comment Blood Urea Nitrogen 9 MG/DL Creatinine 0.91 MG/DL Random Glucose 80 MG/DL Calcium Level 8.9 MG/DL Sodium Level 139 MEQ/L Potassium Level 3.6 MEQ/L Chloride Level 104 MEQ/L Carbon Dioxide Level 26.5 MEQ/L Anion Gap 9 MEQ/L Estimat Glomerular Filtration Rate 120 ML/MIN Urine Color YELLOW Urine Turbidity HAZY Urine pH 7.0 Urine Specific [place] 1.025 Urine Protein TRACE mg/dL Urine Glucose (UA) NEG mg/dL Urine Ketones NEG mg/dL Urine Occult Blood NEG Urine Nitrite NEG Urine Bilirubin NEG Urine Urobilinogen LESS THAN 2.0 MG/DL Urine Leukocyte Esterase NEG Urine RBC LESS THAN 1 /hpf Urine WBC 1 /hpf Urine Squamous Epithelial Cells <1 /hpf Urine Amorphous Sediment MOD Urine Mucus FEW /lpf Microscopic Urinalysis Comment CULT NOT INDICATED MDM Medical Decision Making Medical Screen Exam Complete: Yes Emergency Medical Condition: Yes Differential Diagnosis Differential diagnosis of flank pain includes but is not limited to kidney stone , pyelonephritis, musculoskeletal pain, PE Narrative Course This patient presents with right flank pain. He seems a little histrionic. CBC & BMP Diagram 05/31/17 15:16 Calcium Level 8.9 Last Impressions Abdomen/Pelvis CT 05/31/17 1424 Signed Impressions: Service Date/Time: Wednesday, May 31, 2017 14:40 - CONCLUSION: 1. No acute CT findings to explain patient's right flank pain. Specifically, normal appendix and no evidence for radiopaque renal calculi or obstructive uropathy. 2. Ancillary findings include small fat containing barium upper hernia and left femoral intramedullary nail. Zaheer Ortiz MD UA is negative. The history, exam, diagnostic testing, and current condition do not suggest any significant pathology to warrant further testing, continued ED treatment, admission, or surgical evaluation at this point. No EMC was found. The patient 's condition is stable and appropriate for discharge. Diagnosis Primary Impression: Flank pain Patient Instructions: Flank Pain (ED), General Instructions Disposition: 01 DISCHARGE HOME Condition: Stable Lizbet Penaloza MD May 31, 2017 16:29
[2017-05-31 16:33] LABS: BLOOD, URINE NEG (NEG); COMMENT (UR) CULT NOT INDICATED; CULTURE IF INDICATED CULT NOT INDICATED; GLUCOSE,URINE NEG (NEG); KETONE, URINE NEG (NEG); MUCUS URINE FEW /lpf (OCC); NITRITE,URINE NEG (NEG); SQUAMOUS EPITHELIAL CELL URINE <1 /hpf (0-5); URINE COLOR YELLOW (YELLW/STRAW)
[2017-05-31] MEDS ORDERED: CYCL10TA PO (16:51)
== END 2017-05-31 17:08 | disposition home or self-care (01) ==
LOC: NEPD 14:12
DX: R10.9 Unspecified abdominal pain (principal)
CPT/HCPCS: 74176; 80048; 81001; 85025

== ENCOUNTER 2017-11-30 15:26 | Emergency (ER) | payer OTHER ==
[2017-11-30] MEDS: DEXAMETHASONE SOD PHOS 4 MG/ML VIAL IM (18:04)
[2017-11-30] MEDS: KETOROLAC TROMETHAMINE 60 MG/2 ML (IM) VIAL IM (18:04)
== END 2017-11-30 18:48 | disposition home or self-care (01) ==
LOC: NEPK 15:26
DX: M54.5 Low back pain (principal); G89.29 Other chronic pain; F12.90 Cannabis use, unspecified, uncomplicated
CPT/HCPCS: 96372; 99283-25